=== PATIENT | female | born 1935 | race Two or more races ===

== ENCOUNTER 2019-12-03 13:34 | Outpatient (CLI) | payer OTHER | END 2019-12-03 13:36 | disposition home or self-care (01) | LOC: NUCLEAR 13:34 | PROVIDERS: ATTEND Specialist | DX: M81.0 Age-related osteoporosis without current pathological fracture (principal) ==

== ENCOUNTER 2023-02-08 15:45 | Emergency (ER) | payer OTHER ==
[~2023-02-08] VITALS: Ht 162.6 cm; Wt 64.9 kg
[2023-02-08] MEDS ORDERED: METFORMIN HCL500 M3 PO (16:28)
== END 2023-02-08 20:02 | disposition home or self-care (01) ==
LOC: ER 15:46
DX: M25.551 Pain in right hip (principal); W07.XXXA Fall from chair, initial encounter; Y93.F1 Activity, caregiving, bathing; Y92.012 Bathroom of single-family (private) house as the place of occurrence of the external cause

== ENCOUNTER 2024-01-09 08:21 | Outpatient (CLI) | payer OTHER ==
[~2024-01-09 08:21] MED LIST: METFORMIN HCL500 M3 PO
== END 2024-01-09 08:31 | disposition home or self-care (01) ==
LOC: TOM 08:21
PROVIDERS: ATTEND Internal Medicine
DX: K57.92 Diverticulitis of intestine, part unspecified, without perforation or abscess without bleeding (principal)
CPT/HCPCS: 74178; Q9965